=== PATIENT | male | born 1970 | race American Indian/Alaskan Native ===

== ENCOUNTER 2017-06-04 14:34 | Emergency (ER) | payer SELFPAY ==
[2017-06-04 14:57] VITALS: BP 122/75
[2017-06-04] MEDS ORDERED: XYLOCAINE 2% INFILTRATI ONE (15:56)
[2017-06-04] MEDS ORDERED: BOOSTRIX IM ONE (15:56)
[2017-06-04] MEDS ORDERED: MOTRIN PO ONE (15:56)
--- NOTE | 2017-06-04 18:23 | Emergency Department Report ---
Entered by BRIAN JACOBS, acting as scribe for MJ VERNON NP. - General Chief complaint: Skin/Abscess/Foreign Body Stated complaint: RT FACE /JAW PAIN Time Seen by Provider: 06/04/17 15:39 Source: patient Mode of arrival: Ambulatory Limitations: No Limitations - History of Present Illness Initial comments: This is a 47 y/o male, nontoxic, well nourished in appearance, no acute signs of distress presents with abscess to right mandible area x 3 days. Patient stated has been shaving 6 days ago and started to see a small boil that developed into an abscess. Associated symptoms include pain but he denies purulent drainage, fever, chills, headache, chest pain, shortness of breathe, unable to open mouth, fever, chills, nausea and vomiting. Pain is described as constant and 10/10 on a severity scale. Patient states abscess may be due to ingrown hair. Patient stated has been applying warm compressors that decreased swelling a lot. Aggravated with movement. NKDA. RIVERO complaint: abscess/boil Onset/Timin -: days(s) Location: face Severity: severe Severity scale (0 -10): 10 Quality: constant Consistency: constant Improves with: none Worsens with: movement Context: none Associated symptoms: denies other symptoms, other (denies: purulent drainage, fever, chills, nausea, vomiting) Treatments Prior to Arrival: other (warm compressors) - Related Data Previous Rx's Medication Instructions Recorded Last Taken Type Cephalexin [Keflex] 500 mg PO Q8HR 7 Days 06/04/17 Unknown Rx Ibuprofen [Motrin 600 MG tab] 600 mg PO Q8H PRN #30 tablet 06/04/17 Unknown Rx Allergies Allergy/AdvReac Type Severity Reaction Status Date / Time No Known Allergies Allergy Unverified 06/04/17 14:57 Abscess Boil HPI - HPI Chief Complaint: Skin/Abscess/Foreign Body Stated Complaint: RT FACE /JAW PAIN Time Seen by Provider: 06/04/17 15:04 Home Medications: Previous Rx's Medication Instructions Recorded Last Taken Type Cephalexin [Keflex] 500 mg PO Q8HR 7 Days 06/04/17 Unknown Rx Ibuprofen [Motrin 600 MG tab] 600 mg PO Q8H PRN #30 tablet 06/04/17 Unknown Rx Allergies/Adverse Reactions: Allergies Allergy/AdvReac Type Severity Reaction Status Date / Time No Known Allergies Allergy Unverified 06/04/17 14:57 ED Review of Systems Comment: All other systems reviewed and negative Constitutional: denies: chills, fever Eyes: denies: eye pain, eye discharge, vision change ENT: denies: ear pain, throat pain Respiratory: denies: cough, shortness of breath, wheezing Cardiovascular: denies: chest pain, palpitations Endocrine: no symptoms reported Gastrointestinal: denies: nausea, vomiting Genitourinary: denies: urgency, dysuria Musculoskeletal: denies: back pain, joint swelling, arthralgia Skin: other (abscess to right mandible region, denies:drainage) Neurological: numbness Psychiatric: denies: anxiety, depression Hematological/Lymphatic: denies: easy bleeding, easy bruising ED Past Medical Hx - Past Medical History Additional medical history: LEFT EYE INJURY -GLASS LEFT EYE - Surgical History Additional Surgical History: LEFT EYE. SKIN GRAFTS RIGHT UPPER LEG - Social History Smoking Status: Current Every Day Smoker Substance Use Type: Alcohol - Medications Home Medications: Home Medications Medication Instructions Recorded Confirmed Last Taken Type Cephalexin [Keflex] 500 mg PO Q8HR 7 Days 06/04/17 Unknown Rx Ibuprofen [Motrin 600 MG tab] 600 mg PO Q8H PRN #30 tablet 06/04/17 Unknown Rx ED Physical Exam - General Limitations: No Limitations General appearance: alert, in no apparent distress - Head Head exam: Present: atraumatic, normocephalic, normal inspection - Eye Eye exam: Present: normal appearance, PERRL, EOMI. Absent: scleral icterus, conjunctival injection, nystagmus, periorbital swelling, periorbital tenderness Pupils: Present: normal accommodation - ENT ENT exam: Present: normal exam, normal orophraynx, mucous membranes moist, TM's normal bilaterally, normal external ear exam - Neck Neck exam: Present: normal inspection, full ROM. Absent: tenderness, meningismus, lymphadenopathy, thyromegaly - Respiratory Respiratory exam: Present: normal lung sounds bilaterally. Absent: respiratory distress, wheezes, rales, rhonchi, stridor, chest wall tenderness, accessory muscle use, decreased breath sounds, prolonged expiratory - Cardiovascular Cardiovascular Exam: Present: regular rate, normal rhythm, normal heart sounds. Absent: bradycardia, tachycardia, irregular rhythm, systolic murmur, diastolic murmur, rubs, gallop - GI/Abdominal GI/Abdominal exam: Present: soft, normal bowel sounds. Absent: distended, tenderness, guarding, rebound, rigid, diminished bowel sounds - Rectal Rectal exam: Present: deferred - Extremities Exam Extremities exam: Present: normal inspection, full ROM, normal capillary refill. Absent: tenderness, pedal edema, joint swelling, calf tenderness - Back Exam Back exam: Present: normal inspection, full ROM. Absent: tenderness, CVA tenderness (R), CVA tenderness (L), muscle spasm, paraspinal tenderness, vertebral tenderness, rash noted - Neurological Exam Neurological exam: Present: alert, oriented X3, CN II-XII intact, normal gait - Psychiatric Psychiatric exam: Present: normal affect, normal mood - Skin Skin exam: Present: warm, dry, normal color, other (3 cm abscess to right mandible region. Positive fluctuance present. No posterior drainage is noted. Tender to touch. Warm to touch.) ED Course Vital Signs 06/04/17 14:53 Temperature 98.3 F Pulse Rate 65 Respiratory 17 Rate Blood Pressure 122/75 O2 Sat by Pulse 97 Oximetry - Reevaluation(s) Reevaluation #1: 06/04/17 16:02 Patient is able speak full symptoms with no signs of distress. - I & D Right Jaw Type of Procedure: Complex Site: right mandible region Blade Size: 11 I & D Procedure: betadine prep, sterile drapes applied, sterile dressing applied Progress: Under sterile field, I used Betadine to cleanse the area. I then used 2% lidocaine plain with 25-gauge 5/8 needle to inject area for anesthetic purposes. Total volume injected 3 mL. I then used an 11 blade to make a 1 cm incision. About 2 mL's of purulent drainage has been noted. I then used a hemostat to break the abscess formation. I then used sterile 0.9% normal saline flush to flush the wound with total volume of 40 mL used. I then put a 1 /4 iodoform packing to the incision. A sterile 4 x 4 with tape has been applied as dressing. Bleeding is under control. Patient tolerated the procedure well with no signs of distress noted. ED Medical Decision Making - Medical Decision Making ED course; this is a 47-year-old male that presents with abscess 1- patient was examined myself. 3 cm abscess has been incision and drainage. Patient tolerated procedure well. Patient was instructed to return in 2 days for packing removal and for reassessment of the abscess. 2- patient received Keflex at discharge 3- patient instructed to follow up with her primary care doctor 3-5 days or symptoms such as increased swelling, increased pain, nausea, vomiting chest pain or shortness of breath, stiff neck fever or chills return to the ER as soon as possible. 4- At time time of discharge, the patient does not seem toxic or ill in appearance. No acute signs of distress noted. Patient agrees to discharge treatment plan of care. No further questions noted by the patient. ED Disposition Clinical Impression: Abscess Disposition: DC- TO HOME OR SELFCARE Is pt being admited?: No Does the pt Need Aspirin: No Condition: Stable Instructions: Abscess (ED), Abscess Incision and Drainage (ED), Cephalexin (By mouth), Ibuprofen (By mouth) Additional Instructions: follow up with your primary care doctor 3-5 days or symptoms such as increased swelling, increased pain, nausea, vomiting chest pain or shortness of breath, stiff neck fever or chills return to the ER as soon as possible. Take full course of antibiotic as prescribed Prescriptions: Cephalexin [Keflex] 500 mg PO Q8HR 7 Days Ibuprofen [Motrin 600 MG tab] 600 mg PO Q8H PRN #30 tablet PRN Reason: Pain Referrals: PRIMARY CARE, [Referring] - 3-5 Days JOSE ROBLES MD [Staff Physician] - 3-5 Days [facility] [Outside] - 3-5 Days [facility] [Outside] - 3-5 Days Forms: Work/School Release Form(ED) This documentation as recorded by the ARLENE gonzales ELIZABETH,accurately reflects the service I personally performed and the decisions made by me,MJ VERNON, CORNELL.
== END 2017-06-04 17:24 | disposition home or self-care (01) ==
LOC: ED 14:34
DX: L02.01 Cutaneous abscess of face (principal); F17.200 Nicotine dependence, unspecified, uncomplicated
CPT/HCPCS: 90471; 90715